=== PATIENT | female | born 2000 | race African-American/Black ===

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

== ENCOUNTER 2020-04-29 16:42 | Inpatient (IN) | payer OTHER ==
[~2020-04-29] VITALS: Ht 162.6 cm; Wt 77.0 kg
[2020-04-29] VITALS (27 sets, daily range): BP systolic 115–182; BP diastolic 65–107
[~2020-04-29 16:42] MED LIST: OMEP40CA97 PO
[2020-04-29] MEDS ORDERED: LACTATED RINGER'S 1000 ML IV STA (16:58)
[2020-04-29] MEDS ORDERED: PROMETHAZINE 25MG SUPP PR ONE (17:00)
[2020-04-29] MEDS ORDERED: ACETAMINOPHEN 500 MG TAB PO ONE (17:00)
[2020-04-29] MEDS ORDERED: ACET-683 PO (17:08)
[2020-04-29] MEDS ORDERED: PRENTAB9 PO (17:08)
[2020-04-29] MEDS ORDERED: FIORICET TAB PO ONE (17:30)
[2020-04-29] MEDS ORDERED: ACETAMINOPHEN TAB 650MG DOSE (2X325MG) PO ONE (17:30)
[2020-04-29 17:46] LABS: APPEARANCE, URINE HAZY (CLEAR); BACTERIA, URINE AUTO 1+ (NEGATIVE); BILIRUBIN, URINE AUTO NEGATIVE (NEGATIVE); BLOOD, URINE BLOOD NEGATIVE (NEGATIVE); COLOR, URINE YELLOW (YELLOW); GLUCOSE, URINE (UA) AUTO NEGATIVE (NEGATIVE); KETONE, URINE AUTO NEGATIVE (NEGATIVE); LEUKOCYTE ESTERASE, URINE AUTO NEGATIVE (NEGATIVE); NITRITE, URINE AUTO NEGATIVE (NEGATIVE); PROTEIN, URINE AUTO NEGATIVE (NEGATIVE); RBC, URINE AUTO 1 /HPF (0-3); SPECIFIC GRAVITY URINE AUTO 1.008 (1.002-1.035); SQUAMOUS EPITHELIAL CELL UR AU 1 /HPF (0-6); UROBILINOGEN, URINE AUTO 0.2 mg/dL (0.0-2.0); WBC, URINE AUTO 7 /HPF (0-3)
[2020-04-29 17:53] LABS: HEMATOCRIT 38.4 % (36.0-47.0); HEMOGLOBIN 12.5 g/dl (12.0-15.5); MEAN CORPUSCULAR HEMOGLOBIN 29.6 pg (27.0-33.0); MEAN CORPUSCULAR HGB CONC 32.6 g/dl (32.0-36.5); MEAN CORPUSCULAR VOLUME 90.8 fl (80.0-96.0); PLATELET COUNT, AUTOMATED 280 10^3/uL (150-450); RED BLOOD COUNT 4.23 10^6/uL (4.00-5.40); WHITE BLOOD COUNT 7.8 10^3/uL (4.0-10.0)
[2020-04-29 18:56] LABS: ALT/SGPT 19 U/L (12-78); BILIRUBIN,TOTAL 0.2 MG/DL (0.2-1.0); CREATININE FOR GFR 0.67 MG/DL (0.55-1.30); LDH LACTATE DEHYDROGENASE 207 U/L (84-246); URIC ACID 4.6 MG/DL (2.6-6.0)
[2020-04-29] MEDS ORDERED: PENICILLIN G POTASSIUM IV 5 MU in D5W MINI-BAG PLUS 100 ML IV ONE (19:00)
[2020-04-29] MEDS ORDERED: CALCIUM GLUCONATE 1,000 MG in D5W MINI-BAG PLUS 100 ML IV PRN (19:00)
[2020-04-29] MEDS ORDERED: LABETALOL 100MG/20ML VIAL IV ONE (19:00)
[2020-04-29] MEDS ORDERED: MAG Sulf (L&D) 4 GM/100 ML 4 GM in IV 1 EA IV ONE (19:00)
[2020-04-29] MEDS ORDERED: LABETALOL 100MG/20ML VIAL IV SCH (19:15)
[2020-04-29] MEDS ORDERED: MAGNESIUM *L&D* 4GM/100ML BAG (40MG/ML) As Ordered ONE (19:18)
[2020-04-29] MEDS: MAG Sulf (OBGYN) 20GM/500ML 20,000 MG in IV 1 EA IV SCH (19:20)
[2020-04-29] MEDS: LR 1,000 ML IV SCH (19:21)
[2020-04-29] MEDS: BETAMETHASONE SOLUSPAN 6MG/ML 5ML VIAL (J0702 PER 3MG) IM SCH (19:40)
--- NOTE | 2020-04-29 20:49 | HPEPDOC ---
Obstetrical History & Physical General Date of Admission Apr 29, 2020 at 19:01 Primary Care Physician: Vasquez Wright MD History of Present Illness 20 yo at 31.3 weeks history of headache unresolved by traditional medication. On admission severe range blood pressure denies visual disturbances no RUQ pain no edema edema . given narcotics and relaxants no change in headache. investigation for pre e . 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 Past Medical History Surgical History: Denies/None Family History Significant Family History: No pertinent family hx Social History Marital Status: Family situation: Spouse/partner home Psychosocial History: No pertinent psych hx * Smoker: non-smoker Alcohol: Denies Drugs: denies Abuse Violence Screening Have you been hit/kicked/slapp: No Have you been sexually assault: No Imunizations Tdap status: current Influenza Status: current Allergies Coded Allergies: No Known Allergies (Unverified , 08/10/19) Medications Scheduled No.137/Iron/Folic Acd ( Vitamin Tablet) 1 Each Tablet, 1 TAB PO DAILY Scheduled PRN Acetaminophen (Acetaminophen) 500 Mg Tablet, 1,000 TAB PO Q6H PRN for DISCOMFORT Physical Examination Physical Examination GENERAL: Alert and oriented times three. BREAST: . ABDOMEN: Gravid and non-tender to touch. FETUS: Is vertex (VTX) fetus is vertex (VTX) by Balta. HEART RATE: Regular rate and rhythm. LUNGS: Clear to auscultation (CTA). EXTREMITIES: No edema. No clonus. Deep tendon reflexes (DTRs) NORMAL Other physical findings CATEGORY 1 STRIP, HEENT NORMOCEPHALIC, ATRAUMATIC,NECK FULL RANGE OF MOTIONS,PERRLA, CHEST HRR, DISTAL PULSES SYMMETRIC LUNGS CTA,NO WHEEZE NO RHONCHI BACK RCVA,TENDERNESS ABDOMEN GRAVID NON TENDER APPROPRIATE FUNDAL HEIGHT VERTEX ROS. NO RASH NO LESION TATTOO. NO PURITUS MUSCULOSKELETAL NO ARTHRALGIA,NO MYALGIA, NO JOINT PAIN. DIGESTIVE NO N/V/C/D/F Vital Signs/I&O Vital Signs Date Time Temp Pulse Resp B/P (MAP) Pulse Ox O2 Delivery O2 Flow Rate FiO2 04/29/20 19:24 182/90 04/29/20 18:29 64 16 04/29/20 18:03 Room Air 04/29/20 17:00 97.5 98 Laboratory Data 24H LABS Laboratory Tests 2 04/29/20 17:15: Nucleated Red Blood Cells % (auto) 0.0, Urine Color YELLOW, Urine Appearance HAZY, Urine pH 6.0, Urine Specific Philipp 1.008, Urine Protein NEGATIVE, Urine Glucose (Auto)(UA) NEGATIVE, Urine Ketones (Auto) NEGATIVE, Urine Blood NEGATIVE, Urine Nitrite NEGATIVE, Urine Bilirubin NEGATIVE, Urine Urobilinogen 0.2, Urine Leukocyte Esterase (Auto) NEGATIVE, Urine WBC (Auto) 7H, Urine RBC (Auto) 1, Urine Hyaline Casts (Auto) 0, Urine Bacteria (Auto) 1+H, Urine Squamous Epithelial Cells 1, Urine Sperm (Auto) , Uric Acid 4.6, Total Bilirubin 0.2, Aspartate Amino Transf (AST/SGOT) 21, Alanine Aminotransferase (ALT/SGPT) 19, Lactate Dehydrogenase 207 CBC/BMP Laboratory Tests 04/29/20 17:15 Pertinent Laboratoy Data Blood Type: O+ RBC Antibody Screen: Negative HIV: Negative Hepatitis B: Negative Rapid Plasma Reagin: Nonreactive Rubella: Immune Varicella: Immune Chlamydia/Gonorrhea: Negative Group B Streptococcus: Unknown Cystic Fibrosis: Negative Anatomy Ultrasound Placenta Location: Anterior Normal Anatomy: Yes Placenta Previa: No Steroid Therapy Steroid Therapy: Yes Date #1: Apr 29, 2020 Date #2: Apr 30, 2020 Reason PRE TERM PRE ECLAMPSIA. Vaginal Examination Presentation: Cephalic presentation Assessment Heart Rate (FHR): 140 Variability: Moderate Accelerations: Present Decelerations: None Tocometer Contractions: No Assessment/Plan Assessment 20-year-old (G1 para (P0 at 31.3 weeks by 7 week ultrasound. Presents to Labor and Delivery HEADACHE AND SEVERE RANGE BLOOD PRESSURES. 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 Diet: NPO Group B Streptococcus (GBS) UNKNOWN Labs and intravenous (IV) per unit protocol. Counseled on STABILIZATION OF BP NEURO PROPHYLAXIS . Lactated Ringers (LR):125 then at mL/hr. Anticipate IOL WHEN STABLE C-S as appropriate. Labor and Delivery Counseling PLAN IS TO ADMIT PRECAUTIONS FOR PRE E AND SEIZURE IV MGSO4 , IV HYPERTENSIVE PROTOCOL STERIOD FOR LUNG MATURITY, ANTIBIOTICS FOR GBS STATUS UNKNOWN, NOTIFY NEONATOLOGY IN AND OUT PATIENT EXPRESSED UNDERSTANDING ORDERED BPP AND WEIGHT Vasquez Wright MD Apr 29, 2020 20:45
[2020-04-29 20:57] LABS: CREATININE,RANDOM URINE 80.7 MG/DL; TOTAL PROTEIN,RANDOM URINE 24.9 MG/DL (0.0-12.0)
--- NOTE | 2020-04-29 22:54 | REPVR ---
PROCEDURE INFORMATION: Exam: US After First Trimester, Transabdominal Exam date and time: 04/29/2020 9:47 PM Age: 20 years old Clinical indication: Condition or disease; Lmp or gestational age (weeks): 31w; Pre-eclampsia; 1st ; ; Additional info: Pre eclampsia at 31.3 weeks, bpp, weight TECHNIQUE: Imaging protocol: Real-time transabdominal obstetrical ultrasound of the maternal pelvis and a second or third trimester with image documentation. COMPARISON: No relevant prior studies available. FINDINGS: Last menstrual period: 09/22/2019 Gestation: There is a single intrauterine . heart rate: 139 bpm Presentation: Breech Placenta: Grade 1. Posterior. No placenta previa. Amniotic fluid: Within normal limits. Amniotic fluid index: 11 cm (8.7-24 cm) ANATOMY: Midline falx: Normal. Cerebellum: Normal. Cerebral ventricles: Normal. Cisterna magna: Normal. Septum pellucidum: Normal. Upper lip and nose: Normal. Heart four-chamber view, heart size and position: Normal. kidneys: Normal. stomach: Normal. urinary bladder: Normal. Spine: Limited visualization secondary to obscuration by positioning. Umbilical cord insertion site into the abdomen: Normal. Umbilical cord vessel number: Normal 3 vessel umbilical cord. Arms and hands: Normal. Legs and feet: Normal. external genitalia: Male BIOMETRY: Gestational age (AUA): 30 weeks 5 days Gestational age by LMP: 31 weeks 3 days Estimated weight percentile: 53% Estimated due date (AUA): 07/03/2020 Estimated due date by LMP: 06/28/2020 Estimated weight: 1744 g (3 lb 13 oz) Biparietal diameter: 7.4 cm; 29 weeks 4 days, which is in the 13th percentile Head circumference: 28.6 cm; 31 weeks 3 days, which is in the 51st percentile Abdominal circumference: 28.1 cm; 32 weeks 1 day, which is in the 61st percentile Humerus length: 5.2 cm; 30 weeks 3 days, which is in the 33rd percentile Femur length: 5.7 cm; 30 weeks 0 days, which is in the 19th percentile biometric ratios: Ratios: CI = 0.70 (0.70-0.86); FL/AC = 0.20 (0.20-0.24); FL/BPD = 0.77 (0.71-0.87); HC/AC = 1.02 (0.96-1.15) MATERNAL ANATOMY: Uterus: Unremarkable. Cervix: The cervix is closed and measures 3.8 cm in length. Right adnexa: The right ovary was not visualized due to obscuration by intestinal gas. Left adnexa: The left ovary was not visualized due to obscuration by intestinal gas. Intraperitoneal space: No free fluid is seen from the images obtained. IMPRESSION: 1. Single live intrauterine in breech presentation with a gestational age by today's ultrasound of 30 weeks 5 days and estimated due date on 07/03/2020 with appropriate signs of growth. 2. Estimated weight of 1744 g (3 lb 13 oz), which is in the 53rd percentile. PROCEDURE INFORMATION: Exam: US Doppler Velocimetry of the Umbilical Artery Exam date and time: 04/29/2020 9:47 PM Age: 20 years old Clinical indication: Condition or disease; Lmp or gestational age (weeks): 31w; Pre-eclampsia; 1st ; ; Additional info: Pre eclampsia at 31.3 weeks bpp weight TECHNIQUE: Imaging protocol: US Doppler velocimetry of the umbilical artery with Doppler color and waveform analysis. COMPARISON: No relevant prior studies available. FINDINGS: Umbilical cord and insertion: There are 2 umbilical arteries and 1 umbilical vein. Cord insertion on the abdominal wall is normal. Umbilical artery Doppler: There are 2 umbilical arteries, which are patent. There is normal continuous forward flow in the umbilical artery during diastole and no absent or reversed end-diastolic flow is noted. Umbilical artery peak systolic velocity: 47.7 cm/s Umbilical artery systolic to diastolic ratio: Systolic to diastolic ratio is within normal limits for age and measures 3.38. IMPRESSION: Unremarkable umbilical Doppler for age. PROCEDURE INFORMATION: Exam: US Biophysical Profile Without Non-Stress Test Exam date and time: 04/29/2020 9:47 PM Age: 20 years old Clinical indication: Condition or disease; Lmp or gestational age (weeks): 31w; Pre-eclampsia; 1st ; ; Additional info: Pre eclampsia at 31.3 weeks bpp weight TECHNIQUE: Imaging protocol: US biophysical profile without non-stress testing. COMPARISON: No relevant prior studies available. FINDINGS: BIOPHYSICAL PROFILE: Breathin/2 Gross body movements: 2/2 tone: 2/2 Qualitative amniotic fluid: 2/2 Biophysical Profile Score: 8/8 IMPRESSION: Biophysical profile score is 8 out of 8. Electronically signed by: Merlin Dc On 04/29/2020 22:54:10 PM
[2020-04-30] VITALS (68 sets, daily range): BP systolic 108–145; BP diastolic 60–91
[2020-04-30] MEDS: PENICILLIN G POTASSIUM IV 2.5 MU in IV 1 EA IV SCH ×5 (01:40→13:33)
[2020-04-30] MEDS: MAG Sulf (OBGYN) 20GM/500ML 20,000 MG in IV 1 EA IV SCH ×2 (05:32→14:52)
[2020-04-30] MEDS: LR 1,000 ML IV SCH ×2 (06:34→18:46)
--- NOTE | 2020-04-30 06:54 | IPNPDOC ---
Text Note Date of Service The patient was seen on 04/30/20. NOTE 05/01/2021 reviewed overnight progress no severe range blood pressures normalized headache resolved . plan complete 24 hour urine protein complete mgso4 24 hours , complete steroids 24 hours compete antibiotics . us normal RAUL BPP 8/8 wt 3 lbs 13 oz breech. Plan monitor 24 hours if stable may be able to do outpatient monitoring NAME: TANISHA NASSAR DATE OF : 2000 BUSINESS NUMBER: [id number] AGE: 20 SEX: F REPORT #: [id number] ROOM: [facility] TECHNOLOGIST: HARRISON DOCTOR: Vasquez Wright MD Ordered for Date&Time: 04/29/201936 cc: [~ rep ct ivnm] Service Date&Time: 04/29/202146 EXAMINATION REQUESTED: Obs. Limited, RAUL US REASON FOR PATIENT VISIT: HEADACHE REASON FOR EXAMINATION: PRE ECLAMPSIA AT 31.3 WEEKS BPP WEIGHT PROCEDURE INFORMATION: Exam: US After First Trimester, Transabdominal Exam date and time: 04/29/2020 9:47 PM Age: 20 years old Clinical indication: Condition or disease; Lmp or gestational age (weeks): 31w; Pre-eclampsia; 1st ; ; Additional info: Pre eclampsia at 31.3 weeks, bpp, weight TECHNIQUE: Imaging protocol: Real-time transabdominal obstetrical ultrasound of the maternal pelvis and a second or third trimester with image documentation. COMPARISON: No relevant prior studies available. FINDINGS: Last menstrual period: 09/22/2019 Gestation: There is a single intrauterine . heart rate: 139 bpm Presentation: Breech Placenta: Grade 1. Posterior. No placenta previa. Amniotic fluid: Within normal limits. Amniotic fluid index: 11 cm (8.7-24 cm) ANATOMY: Midline falx: Normal. Cerebellum: Normal. Cerebral ventricles: Normal. Cisterna magna: Normal. Septum pellucidum: Normal. Upper lip and nose: Normal. Heart four-chamber view, heart size and position: Normal. kidneys: Normal. stomach: Normal. urinary bladder: Normal. Spine: Limited visualization secondary to obscuration by positioning. Umbilical cord insertion site into the abdomen: Normal. Umbilical cord vessel number: Normal 3 vessel umbilical cord. Arms and hands: Normal. Legs and feet: Normal. external genitalia: Male BIOMETRY: Gestational age (AUA): 30 weeks 5 days Gestational age by LMP: 31 weeks 3 days Estimated weight percentile: 53% Estimated due date (AUA): 07/03/2020 Estimated due date by LMP: 06/28/2020 Estimated weight: 1744 g (3 lb 13 oz) Biparietal diameter: 7.4 cm; 29 weeks 4 days, which is in the 13th percentile Head circumference: 28.6 cm; 31 weeks 3 days, which is in the 51st percentile Abdominal circumference: 28.1 cm; 32 weeks 1 day, which is in the 61st percentile Humerus length: 5.2 cm; 30 weeks 3 days, which is in the 33rd percentile Femur length: 5.7 cm; 30 weeks 0 days, which is in the 19th percentile biometric ratios: Ratios: CI = 0.70 (0.70-0.86); FL/AC = 0.20 (0.20-0.24); FL/BPD = 0.77 (0.71-0.87); HC/AC = 1.02 (0.96-1.15) MATERNAL ANATOMY: Uterus: Unremarkable. Cervix: The cervix is closed and measures 3.8 cm in length. Right adnexa: The right ovary was not visualized due to obscuration by intestinal gas. Left adnexa: The left ovary was not visualized due to obscuration by intestinal gas. Intraperitoneal space: No free fluid is seen from the images obtained. IMPRESSION: 1. Single live intrauterine in breech presentation with a gestational age by today's ultrasound of 30 weeks 5 days and estimated due date on 07/03/2020 with appropriate signs of growth. 2. Estimated weight of 1744 g (3 lb 13 oz), which is in the 53rd percentile. PROCEDURE INFORMATION: Exam: US Doppler Velocimetry of the Umbilical Artery Exam date and time: 04/29/2020 9:47 PM Age: 20 years old Clinical indication: Condition or disease; Lmp or gestational age (weeks): 31w; Pre-eclampsia; 1st ; ; Additional info: Pre eclampsia at 31.3 weeks bpp weight TECHNIQUE: Imaging protocol: US Doppler velocimetry of the umbilical artery with Doppler color and waveform analysis. COMPARISON: No relevant prior studies available. FINDINGS: Umbilical cord and insertion: There are 2 umbilical arteries and 1 umbilical vein. Cord insertion on the abdominal wall is normal. Umbilical artery Doppler: There are 2 umbilical arteries, which are patent. There is normal continuous forward flow in the umbilical artery during diastole and no absent or reversed end-diastolic flow is noted. Umbilical artery peak systolic velocity: 47.7 cm/s Umbilical artery systolic to diastolic ratio: Systolic to diastolic ratio is within normal limits for age and measures 3.38. IMPRESSION: Unremarkable umbilical Doppler for age. PROCEDURE INFORMATION: Exam: US Biophysical Profile Without Non-Stress Test Exam date and time: 04/29/2020 9:47 PM Age: 20 years old Clinical indication: Condition or disease; Lmp or gestational age (weeks): 31w; Pre-eclampsia; 1st ; ; Additional info: Pre eclampsia at 31.3 weeks bpp weight TECHNIQUE: Imaging protocol: US biophysical profile without non-stress testing. COMPARISON: No relevant prior studies available. FINDINGS: BIOPHYSICAL PROFILE: Breathin/2 Gross body movements: 2/2 tone: 2/2 Qualitative amniotic fluid: 2/2 Biophysical Profile Score: 8/8 IMPRESSION: Biophysical profile score is 8 out of 8. Electronically signed by: Merlin Dc On 04/29/2020 22:54:10 PM DD: MERLIN DC MD 04/29/202146 DT: ELIZABETH 04/29/202253 DS: MARK 04/29/202253 VS,Fishbone, I+O VS, Fishbone, I+O Vital Signs Date Time Temp Pulse Resp B/P (MAP) Pulse Ox O2 Delivery O2 Flow Rate FiO2 04/30/20 06:36 98.0 101 16 137/79 (98) 04/30/20 06:21 107 132/77 (95) 04/30/20 06:06 99 132/80 (97) 04/30/20 05:51 93 130/81 (97) 04/30/20 05:36 96 16 133/77 (95) 04/30/20 05:21 105 16 126/70 (88) 04/30/20 05:06 109 16 122/72 (89) 04/30/20 04:51 104 16 131/71 (91) 04/30/20 04:36 110 16 126/66 (86) 04/30/20 04:21 103 16 129/66 (87) 04/30/20 04:07 109 16 119/65 (83) 04/30/20 03:51 97 16 129/65 (86) 04/30/20 03:36 103 16 116/60 (78) 04/30/20 03:21 98 16 123/67 (85) 04/30/20 03:06 100 16 118/67 (84) 04/30/20 02:51 95 16 116/67 (83) 04/30/20 02:36 101 16 121/71 (88) 04/30/20 02:21 96 16 117/69 (85) 04/30/20 02:06 16 126/85 (99) 04/30/20 01:51 96 16 120/79 (93) 04/30/20 01:37 96 16 119/81 (94) 04/30/20 01:22 102 16 111/65 (80) 04/30/20 01:06 108 16 108/62 (77) 04/30/20 00:51 96 16 120/73 (89) 04/30/20 00:37 86 16 119/77 (91) 04/30/20 00:21 92 16 115/62 (79) 04/30/20 00:06 93 16 110/60 (77) 04/29/20 23:51 94 16 115/66 (82) 04/29/20 23:36 108 16 121/65 (83) 04/29/20 23:21 104 16 127/66 (86) 04/29/20 23:07 109 16 117/66 (83) 04/29/20 22:51 110 18 130/82 (98) 04/29/20 22:36 98.0 100 18 138/74 (95) 04/29/20 22:21 103 18 143/89 (107) 04/29/20 22:06 108 18 121/68 (85) 04/29/20 21:52 96 18 137/76 (96) 04/29/20 21:37 95 18 135/91 (106) 04/29/20 21:21 75 18 132/81 (98) 04/29/20 21:09 90 18 129/76 (93) 04/29/20 20:37 80 134/73 (93) 04/29/20 20:21 18 135/70 (91) 04/29/20 20:07 96 18 126/70 (88) 04/29/20 19:52 106 18 130/76 (94) 04/29/20 19:36 68 18 146/90 (108) 04/29/20 19:24 182/90 04/29/20 19:22 70 18 182/90 (120) 04/29/20 19:14 70 18 179/92 (121) 04/29/20 18:29 64 16 151/70 (97) 04/29/20 18:13 64 18 155/83 (107) 04/29/20 18:04 69 16 180/107 (131) 04/29/20 18:03 16 151/89 Room Air 04/29/20 17:39 60 18 151/89 (109) 04/29/20 17:00 97.5 67 20 137/91 (106) 98 Room Air Intake & Output 04/30/20 06:00 Intake Total 2818.5 ml Output Total 1830 ml Balance 988.5 ml Laboratory Tests 04/29/20 17:14: Urine Random Creatinine 80.7, Urine Random Total Protein 24.9H 04/29/20 17:15: White Blood Count 7.8, Red Blood Count 4.23, Hemoglobin 12.5, Hematocrit 38.4, Mean Corpuscular Volume 90.8, Mean Corpuscular Hemoglobin 29.6, Mean Corpuscular Hemoglobin Concent 32.6, Red Cell Distribution Width 13.6, Platelet Count 280, Nucleated Red Blood Cells % (auto) 0.0, Urine Color YELLOW, Urine Appearance HAZY, Urine pH 6.0, Urine Specific [place] 1.008, Urine Protein NEGATIVE, Urine Glucose (Auto)(UA) NEGATIVE, Urine Ketones (Auto) NEGATIVE, Urine Blood NEGATIVE, Urine Nitrite NEGATIVE, Urine Bilirubin NEGATIVE, Urine Urobilinogen 0.2, Urine Leukocyte Esterase (Auto) NEGATIVE, Urine WBC (Auto) 7H, Urine RBC (Auto) 1, Urine Hyaline Casts (Auto) 0, Urine Bacteria (Auto) 1+H, Urine Squamous Epithelial Cells 1, Urine Sperm (Auto) , Creatinine 0.67, Uric Acid 4.6, Total Bilirubin 0.2, Aspartate Amino Transf (AST/SGOT) 21, Alanine Aminotransferase (ALT/SGPT) 19, Lactate Dehydrogenase 207 04/29/20 20:57: Serology Scanned Report Hepatitis B Testing Current Medications Medications (Trade) Dose Ordered Sig/Roni Route PRN Reason Start Time Stop Time Status Last Admin Dose Admin Betamethasone Acet/Betameth SodPhos (Celestone-Soluspan) 12 mg Q24H IM 04/29/20 19:00 04/30/20 19:01 04/29/20 19:40 12 MG Lactated Ringer's 1,000 ml @ 125 mls/hr Q8H IV 04/29/20 18:51 04/30/20 06:34 125 MLS/HR Magnesium Sulfate 61848 mg/IV Miscellaneous Supplies 500 ml @ 50 mls/hr Q10H IV 04/29/20 19:20 04/30/20 05:32 50 MLS/HR Penicillin G Potassium 2.5 mu/ IV Miscellaneous Supplies 25 ml @ 25 mls/hr Q4H IV 04/30/20 01:00 04/30/20 05:32 25 MLS/HR I & O 04/30/20 06:00 Intake Total 2818.5 ml Output Total 1830 ml Balance 988.5 ml Intake Oral 480 ml IV Total 2338.5 ml Output Urine Total 1830 ml # Voids 2 Laboratory Tests 04/29/20 17:15 Vital Signs Date Time Temp Pulse Resp B/P (MAP) Pulse Ox O2 Delivery O2 Flow Rate FiO2 04/30/20 06:36 98.0 101 16 137/79 (98) 04/29/20 18:03 Room Air 04/29/20 17:00 98 I&O- Last 24 Hours up to 6 AM 04/30/20 06:00 Intake Total 2818.5 ml Output Total 1830 ml Balance 988.5 ml Vasquez Wright MD Apr 30, 2020 06:49
[2020-04-30 08:19] LABS: HEMATOCRIT 35.3 % (36.0-47.0); HEMOGLOBIN 11.8 g/dl (12.0-15.5); MEAN CORPUSCULAR HEMOGLOBIN 30.3 pg (27.0-33.0); MEAN CORPUSCULAR HGB CONC 33.4 g/dl (32.0-36.5); MEAN CORPUSCULAR VOLUME 90.7 fl (80.0-96.0); PLATELET COUNT, AUTOMATED 291 10^3/uL (150-450); RED BLOOD COUNT 3.89 10^6/uL (4.00-5.40); WHITE BLOOD COUNT 10.8 10^3/uL (4.0-10.0)
[2020-04-30 08:42] LABS: ALBUMIN 2.5 GM/DL (3.2-5.2); ALT/SGPT 17 U/L (12-78); BILIRUBIN,TOTAL < 0.1 MG/DL (0.2-1.0); BLOOD UREA NITROGEN 8 MG/DL (7-18); CALCIUM LEVEL 7.5 MG/DL (8.5-10.1); CARBON DIOXIDE LEVEL 20 MEQ/L (21-32); CHLORIDE LEVEL 107 MEQ/L (98-107); CREATININE FOR GFR 0.84 MG/DL (0.55-1.30); GLUCOSE, FASTING 112 MG/DL (70-100); POTASSIUM SERUM 4.5 MEQ/L (3.5-5.1); SODIUM LEVEL 137 MEQ/L (136-145); TOTAL PROTEIN 6.8 GM/DL (6.4-8.2)
[2020-04-30] MEDS: SLF 3 ML SYR IV SCH (09:45)
[2020-04-30] MEDS ORDERED: SLF 3 ML SYR IV PRN (09:45)
[2020-04-30 19:31] LABS: HEMOGLOBIN 11.2 g/dl (12.0-15.5); MEAN CORPUSCULAR HEMOGLOBIN 30.4 pg (27.0-33.0); MEAN CORPUSCULAR HGB CONC 32.9 g/dl (32.0-36.5); MEAN CORPUSCULAR VOLUME 92.1 fl (80.0-96.0); PLATELET COUNT, AUTOMATED 266 10^3/uL (150-450); RED BLOOD COUNT 3.69 10^6/uL (4.00-5.40); WHITE BLOOD COUNT 13.2 10^3/uL (4.0-10.0)
[2020-04-30] MEDS: BETAMETHASONE SOLUSPAN 6MG/ML 5ML VIAL (J0702 PER 3MG) IM SCH (20:02)
[2020-04-30 20:05] LABS: ALBUMIN 2.5 GM/DL (3.2-5.2); ALT/SGPT 14 U/L (12-78); BILIRUBIN,TOTAL < 0.1 MG/DL (0.2-1.0); BLOOD UREA NITROGEN 8 MG/DL (7-18); CALCIUM LEVEL 6.7 MG/DL (8.5-10.1); CARBON DIOXIDE LEVEL 19 MEQ/L (21-32); CHLORIDE LEVEL 108 MEQ/L (98-107); CREATININE FOR GFR 0.82 MG/DL (0.55-1.30); GLUCOSE, FASTING 114 MG/DL (70-100); MAGNESIUM LEVEL 6.7 MG/DL (1.8-2.4); POTASSIUM SERUM 4.2 MEQ/L (3.5-5.1); SODIUM LEVEL 138 MEQ/L (136-145)
--- NOTE | 2020-04-30 20:20 | IPNPDOC ---
Text Note Date of Service The patient was seen on 04/30/20. NOTE Ms. Pickard is 20 yo at 31+4 weeks gestation today who was admitted for observation after presenting to L&D yesterday evening with a headache and severely elevated blood pressures. She has never had elevated blood pressure before. Initial lab work was only notable for a urine pr:cr of 0.3. She was given 20mg IV labetalol to stabilize her blood pressure and started on an IV magnesium drip for maternal seizure prophylaxis. Her blood pressure normalized within a couple hours of starting the magnesium and receiving the labetalol. Her headache also improved. A formal US was obtained which revealed appropriate growth and a BPP of 8/8. The fetus was in breech position. She has been collecting a 24 hour urine protein that will be completed tomorrow morning. She received one dose of BTMZ and will receive the next dose around 0000. Blood pressure has continued to be normal or only mildly elevated throughout the day. Headache has improved. FHR tracing is appropriate for gestational age. Ms. Pickard is diuresing well and her last set of toxemia labs this evening were unremarkable. Plan will be to stop the IV magnesium tomorrow AM and monitor her BP, toxemia labs, and symptoms. If she remains stable she may be a candidate for discharge home tomorrow and outpatient management. Jerome Ahmadi DO VSKimber, I+O VSKimber I+O Laboratory Tests 04/30/20 08:01 04/30/20 19:08 Vital Signs Date Time Temp Pulse Resp B/P (MAP) Pulse Ox O2 Delivery O2 Flow Rate FiO2 04/30/20 18:33 90 18 133/84 (100) 04/30/20 18:24 97.6 04/29/20 18:03 Room Air 04/29/20 17:00 98 I&O- Last 24 Hours up to 6 AM 04/30/20 06:00 Intake Total 2818.5 ml Output Total 1830 ml Balance 988.5 ml JEROME AHMADI DO Apr 30, 2020 20:20
[2020-05-01] VITALS (29 sets, daily range): BP systolic 112–170; BP diastolic 60–104
[2020-05-01 00:19] LABS: APPEARANCE, URINE CLEAR (CLEAR); BACTERIA, URINE AUTO 1+ (NEGATIVE); BILIRUBIN, URINE AUTO NEGATIVE (NEGATIVE); BLOOD, URINE BLOOD NEGATIVE (NEGATIVE); COLOR, URINE STRAW (YELLOW); GLUCOSE, URINE (UA) AUTO NEGATIVE (NEGATIVE); KETONE, URINE AUTO NEGATIVE (NEGATIVE); LEUKOCYTE ESTERASE, URINE AUTO NEGATIVE (NEGATIVE); NITRITE, URINE AUTO NEGATIVE (NEGATIVE); PROTEIN, URINE AUTO NEGATIVE (NEGATIVE); RBC, URINE AUTO 1 /HPF (0-3); SPECIFIC GRAVITY URINE AUTO 1.008 (1.002-1.035); SQUAMOUS EPITHELIAL CELL UR AU 0 /HPF (0-6); UROBILINOGEN, URINE AUTO 0.2 mg/dL (0.0-2.0); WBC, URINE AUTO 2 /HPF (0-3)
[2020-05-01 00:33] LABS: TOTAL PROTEIN 24 HOUR URINE 547.4 MG/24HR (50-150); URINE TOTAL PROTEIN 11.9 MG/DL (0-12)
[2020-05-01] MEDS: SLF 3 ML SYR IV SCH (06:00)
--- NOTE | 2020-05-01 07:38 | IPNPDOC ---
Text Note Date of Service The patient was seen on 05/01/20. NOTE Blood pressures have been stable. Headache has resolved. Plan will be to stop IV magnesium infusion and monitor blood pressure and symptoms. Will also obtain another set of toxemia labs. Will closely monitor today and await 24 hour urine protein results. May consider discharge home today or tomorrow with close outpatient follow up. Jerome Ahmadi DO VS,Kimber, I+O VS, Kimber, I+O Laboratory Tests 04/30/20 08:01 04/30/20 19:08 Vital Signs Date Time Temp Pulse Resp B/P (MAP) Pulse Ox O2 Delivery O2 Flow Rate FiO2 05/01/20 06:03 98.3 75 121/63 (82) 04/30/20 22:34 17 04/29/20 18:03 Room Air 04/29/20 17:00 98 I&O- Last 24 Hours up to 6 AM 05/01/20 06:00 Intake Total 5202 ml Output Total 5350 ml Balance -148 ml JEROME AHMADI DO May 01, 2020 07:38
[2020-05-01] MEDS ORDERED: ACETAMINOPHEN TAB 650MG DOSE (2X325MG) PO PRN (08:45)
[2020-05-01] MEDS: LR 1,000 ML IV SCH (08:55)
[2020-05-01 09:18] LABS: HEMATOCRIT 35.5 % (36.0-47.0); HEMOGLOBIN 11.4 g/dl (12.0-15.5); MEAN CORPUSCULAR HEMOGLOBIN 29.4 pg (27.0-33.0); MEAN CORPUSCULAR HGB CONC 32.1 g/dl (32.0-36.5); MEAN CORPUSCULAR VOLUME 91.5 fl (80.0-96.0); PLATELET COUNT, AUTOMATED 295 10^3/uL (150-450); RED BLOOD COUNT 3.88 10^6/uL (4.00-5.40); WHITE BLOOD COUNT 14.7 10^3/uL (4.0-10.0)
[2020-05-01 10:18] LABS: ALBUMIN 2.7 GM/DL (3.2-5.2); ALT/SGPT 15 U/L (12-78); BILIRUBIN,TOTAL 0.1 MG/DL (0.2-1.0); BLOOD UREA NITROGEN 7 MG/DL (7-18); CALCIUM LEVEL 7.6 MG/DL (8.5-10.1); CARBON DIOXIDE LEVEL 23 MEQ/L (21-32); CHLORIDE LEVEL 108 MEQ/L (98-107); CREATININE FOR GFR 0.74 MG/DL (0.55-1.30); GLUCOSE, FASTING 95 MG/DL (70-100); POTASSIUM SERUM 4.2 MEQ/L (3.5-5.1); SODIUM LEVEL 141 MEQ/L (136-145); TOTAL PROTEIN 6.6 GM/DL (6.4-8.2)
[2020-05-01] MEDS ORDERED: LABETALOL 200 MG TAB PO ONE (12:30)
[2020-05-01] MEDS ORDERED: MAG Sulf (OBGYN) 20GM/500ML 20,000 MG in IV 1 EA IV SCH (13:00)
--- NOTE | 2020-05-01 13:28 | IPNPDOC ---
Obstetrical Progress Note Date of Service May 01, 2020 Subjective Patient reports that her headache returned after the magnesium was discontinued this morning. She reports no visual changes, no RUQ pain, no edema. She reports no chest pain, SOB, or n/v. She has been tolerating a regular diet and voiding spontaneously. She refused hernandez catheter and has been using bedside commode. Reports fetus still feels breech but endorses good FM. No VB, LOF, or ctx's. Objective Vital Signs Date Time Temp Pulse Resp B/P (MAP) Pulse Ox O2 Delivery O2 Flow Rate FiO2 05/01/20 12:07 98.3 66 16 164/93 (116) 04/29/20 18:03 Room Air 04/29/20 17:00 98 Assessment Heart Rate (FHR): 140 Variability: Moderate Accelerations: Positive Decelerations: None Heart Rate Tracing: Category I Tocometer Contractions: No Sterile Vaginal Examination Postion/Presentation: Breech presentation Assessment and Plan Status: Reassuring Group B Streptococcus: Unknown Additional Comments Remedios is a 20yo now at 31+5wks HD#2 admitted for concern for headache not responsive to conservative treatment and found to have elevated BP. She ruled in for preeclampsia based on urine protein (p/c ratio at time of admission was 0.3, 24hr urine protein 547 resulted today), severe-ranging BP, and headache. She was given 20mg labetalol IV and placed on magnesium for neuroprophylaxis with resolution of headache and normalization of blood pressures. She completed course of BTMZ for lung maturity. She continued on magnesium until this morning when it was discontinued. After magnesium discontinued, she developed headache again and had severe-range BP that upon repeat was normal. She was given tylenol for her headache. I was consulted to evaluate patient and upon my arrival, patient noted to have severe-ranging BP of 164/93 with repeat 10 minutes later 163/94. Patient counseled that due to status at 31 weeks and inability for our NICU to care for , recommendation to transfer to tertiary center for further evaluation and management. Patient amenable to transfer to tertiary center. status at this time reassuring with cat I FHRT. Recent growth scan at 53rd percentile. Decision made to turn magnesium back on for maternal neuroprophylaxis. BP normalized upon restarting magnesium. Labetalol 200mg ordered PO at this time per request of Dr. Miguel for BP control. Dr. Miguel accepting provider at [facility]. Patient to be transferred via ground EMS. COVID testing completed and negative. All questions answered to timothy ent satisfaction. MARITZA MCCURDY DO May 01, 2020 12:46
== END 2020-05-01 14:35 | disposition short-term general hospital (02) | DRG 833 ==
LOC: M LDO 16:42 → M LDI 19:01
PROVIDERS: ADMIT Registered Nurse; ATTEND Registered Nurse
DX: O14.13 Severe pre-eclampsia, third trimester (principal); Z3A.31 31 weeks gestation of pregnancy; O32.1XX0 Maternal care for breech presentation, not applicable or unspecified; Z20.828 Contact with and (suspected) exposure to other viral communicable diseases

== ENCOUNTER → 2020-11-10 | Outpatient (CLI) | payer OTHER ==
[~2020-11-10] MED LIST changes: +ACET-683 PO; +PRENTAB9 PO
== END ==
LOC: M LABSMTC 14:31
PROVIDERS: ATTEND Family Medicine
DX: Z20.822 Contact with and (suspected) exposure to COVID-19 (principal)
CPT/HCPCS: C9803; U0003

== ENCOUNTER → 2022-04-27 | Outpatient (CLI) | payer OTHER ==
[~2022-04-27] MED LIST changes: +OMEP40CA4 PO; -OMEP40CA97 PO
== END ==
LOC: M PLAIMG 14:36
PROVIDERS: ATTEND Physician Assistant
DX: G43.909 Migraine, unspecified, not intractable, without status migrainosus (principal)

== ENCOUNTER 2023-12-24 11:53 | Emergency (ER) | payer OTHER ==
[~2023-12-24] VITALS: Ht 165.1 cm; Wt 84.5 kg
[2023-12-24] MEDS ORDERED: ACET1TAB55 (12:01)
[2023-12-24] MEDS ORDERED: MEFENAMIC ACID (12:01)
[2023-12-24 13:09] LABS: BASO # 0.1 10^3/uL (0.0-0.2); BASO % 0.9 % (0.0-1.0); EOS # 0.1 10^3/uL (0.0-0.5); EOS % 1.5 % (0.0-3.0); HEMATOCRIT 36.6 % (36.0-47.0); HEMOGLOBIN 11.9 g/dl (12.0-15.5); LYMPH % 34.2 % (24.0-44.0); MEAN CORPUSCULAR HEMOGLOBIN 29.1 pg (27.0-33.0); MEAN CORPUSCULAR HGB CONC 32.5 g/dl (32.0-36.5); MEAN CORPUSCULAR VOLUME 89.5 fl (80.0-96.0); MONO # 0.4 10^3/uL (0.0-0.8); MONO % 7.5 % (2.0-8.0); NEUTROPHILS # 3.3 10^3/uL (1.5-8.5); NEUTROPHILS % 55.7 % (36.0-66.0); PLATELET COUNT, AUTOMATED 386 10^3/uL (150-450); RED BLOOD COUNT 4.09 10^6/uL (4.00-5.40); WHITE BLOOD COUNT 5.9 10^3/uL (4.0-10.0)
[2023-12-24 13:26] LABS: INR 1.03; PARTIAL THROMBOPLASTIN TIME 36.4 SECONDS (24.8-34.2); PROTHROMBIN TIME 13.2 SECONDS (12.5-14.5)
[2023-12-24 13:31] LABS: LIPASE 44 U/L (12-53)
[2023-12-24 13:33] LABS: ALBUMIN 3.8 G/DL (3.2-5.2); ALKALINE PHOSPHATASE 64 U/L (46-116); ALT/SGPT 12 U/L (7.0-40); AMYLASE 96 U/L (30-118); AST/SGOT 14 U/L (<34); BILIRUBIN,DIRECT 0.1 MG/DL (<0.4); BILIRUBIN,TOTAL 0.3 MG/DL (0.3-1.2); BLOOD UREA NITROGEN 9 MG/DL (9-23); CALCIUM LEVEL 8.8 MG/DL (8.5-10.1); CARBON DIOXIDE LEVEL 26 MMOL/L (20-31); CHLORIDE LEVEL 109 MMOL/L (98-107); GLOMERULAR FILTRATION RATE > 60.0 (>60); GLUCOSE, FASTING 81 MG/DL (60-100); POTASSIUM SERUM 4.3 MMOL/L (3.5-5.1); SODIUM LEVEL 141 MMOL/L (136-145); TOTAL PROTEIN 7.2 G/DL (5.7-8.2)
[2023-12-24 13:51] LABS: HCG, SERUM QUALITATIVE NEGATIVE (NEGATIVE)
[2023-12-24] MEDS: NS 1,000 ML IV ONE (16:28)
[2023-12-24] MEDS: KETOROLAC 30 MG/ML 1ML VIAL IV ONE (16:28)
[2023-12-24] MEDS ORDERED: ACETAMINOPHEN *IV* 1,000 MG in IV 1 EA IV ONE (18:00)
[2023-12-24] MEDS ORDERED: KETO10TAB PO (18:17)
[2023-12-24 18:37] VITALS: BP 142/88; TEMP 98; O2SAT 99
[2023-12-24] MEDS: ACETAMINOPHEN *IV* 1,000 MG in IV 1 EA IV ONE (18:43)
== END 2023-12-24 18:42 | disposition home or self-care (01) ==
LOC: M ED 11:53
DX: R10.2 Pelvic and perineal pain (principal); Z79.1 Long term (current) use of non-steroidal anti-inflammatories (NSAID); Z79.2 Long term (current) use of antibiotics
CPT/HCPCS: 76830; 76856; 80048; 80076; 81001; 82150; 83605; 83690; 84703; 85025; 85610; 85730; 93976; 96361; 96374; 99284; J1885

== ENCOUNTER → 2024-01-09 | Outpatient (CLI) | payer OTHER ==
[~2024-01-09] MED LIST changes: +ACET1TAB55; +ISOVUE-300 61% 100ML VIAL As Ordered ONE; +KETO10TAB PO; +LIDOCAINE 1% MDV 20ML VIAL As Ordered ONE; +MEFENAMIC ACID; +PROHANCE 279.3MG/ML 5ML VIAL As Ordered ONE
== END ==
LOC: M RAD 06:45
PROVIDERS: ATTEND Physician Assistant
DX: R10.2 Pelvic and perineal pain (principal); M25.552 Pain in left hip
CPT/HCPCS: 27093; 73723; 77002; A9576; Q9967

== ENCOUNTER 2024-02-13 13:26 | Emergency (ER) | payer OTHER ==
[~2024-02-13] VITALS: Ht 165.1 cm; Wt 88.2 kg
[~2024-02-13 13:26] MED LIST changes: -ISOVUE-300 61% 100ML VIAL As Ordered ONE; -LIDOCAINE 1% MDV 20ML VIAL As Ordered ONE; -PROHANCE 279.3MG/ML 5ML VIAL As Ordered ONE
[2024-02-13 16:09] LABS: BASO % 0.5 % (0.0-1.0); EOS # 0.1 10^3/uL (0.0-0.5); EOS % 1.4 % (0.0-3.0); HEMATOCRIT 37.3 % (36.0-47.0); LYMPH % 48.6 % (24.0-44.0); MEAN CORPUSCULAR HEMOGLOBIN 28.8 pg (27.0-33.0); MEAN CORPUSCULAR HGB CONC 32.2 g/dl (32.0-36.5); MEAN CORPUSCULAR VOLUME 89.4 fl (80.0-96.0); MONO # 0.4 10^3/uL (0.0-0.8); MONO % 9.1 % (2.0-8.0); NEUTROPHILS # 1.7 10^3/uL (1.5-8.5); NEUTROPHILS % 40.4 % (36.0-66.0); PLATELET COUNT, AUTOMATED 344 10^3/uL (150-450); RED BLOOD COUNT 4.17 10^6/uL (4.00-5.40); WHITE BLOOD COUNT 4.2 10^3/uL (4.0-10.0)
[2024-02-13 16:32] LABS: LIPASE 34 U/L (12-53)
[2024-02-13] MEDS: ONDANSETRON 4MG ORAL DISINTEGRATING TAB PO ONE (16:32)
[2024-02-13 16:34] LABS: ALBUMIN 3.8 G/DL (3.2-5.2); ALKALINE PHOSPHATASE 76 U/L (46-116); ALT/SGPT 19 U/L (7.0-40); AST/SGOT 16 U/L (<34); BILIRUBIN,DIRECT < 0.1 MG/DL (<0.4); BILIRUBIN,TOTAL 0.3 MG/DL (0.3-1.2); BLOOD UREA NITROGEN 5 MG/DL (9-23); CALCIUM LEVEL 8.7 MG/DL (8.5-10.1); CARBON DIOXIDE LEVEL 24 MMOL/L (20-31); CHLORIDE LEVEL 108 MMOL/L (98-107); CREATININE FOR GFR 0.78 MG/DL (0.55-1.30); GLOMERULAR FILTRATION RATE > 60.0 (>60); GLUCOSE, FASTING 82 MG/DL (60-100); POTASSIUM SERUM 3.7 MMOL/L (3.5-5.1); SODIUM LEVEL 138 MMOL/L (136-145); TOTAL PROTEIN 7.5 G/DL (5.7-8.2)
[2024-02-13 16:49] LABS: HCG, SERUM QUALITATIVE NEGATIVE (NEGATIVE)
[2024-02-13] MEDS ORDERED: ONDA-282 PO (17:47)
[2024-02-13 17:55] VITALS: BP 124/64; TEMP 97.7; O2SAT 100
== END 2024-02-13 17:57 | disposition home or self-care (01) ==
LOC: M ED 13:26
DX: R10.84 Generalized abdominal pain (principal); R11.10 Vomiting, unspecified; Z79.83 Long term (current) use of bisphosphonates; Z79.1 Long term (current) use of non-steroidal anti-inflammatories (NSAID)

== ENCOUNTER 2024-04-04 06:44 | Emergency (ER) | payer OTHER ==
[~2024-04-04] VITALS: Ht 165.1 cm; Wt 79.7 kg
[~2024-04-04 06:44] MED LIST changes: +ONDA-282 PO
[2024-04-04] MEDS: KETOROLAC 60MG 2ML VIAL IM ONE (07:44)
[2024-04-04] MEDS: PENICILLIN V POTASSIUM 500 MG TAB PO ONE (09:10)
[2024-04-04] MEDS: ACETAMINOPHEN 500 MG TAB PO ONE (09:25)
[2024-04-04] MEDS ORDERED: PENI500T PO (09:26)
[2024-04-04 10:02] VITALS: BP 117/66; TEMP 99.2; O2SAT 100
== END 2024-04-04 10:19 | disposition home or self-care (01) ==
LOC: M ED 06:44 → EDBD 06:44 → M ED 10:19
DX: J02.0 Streptococcal pharyngitis (principal); F41.9 Anxiety disorder, unspecified; F32.A Depression, unspecified; Z79.2 Long term (current) use of antibiotics; Z79.1 Long term (current) use of non-steroidal anti-inflammatories (NSAID); Z79.83 Long term (current) use of bisphosphonates
CPT/HCPCS: 87486; 87581; 87633; 87798; 87880; 96372; 99284; J1885